=== PATIENT | female | born 1995 | race Two or more races ===

== ENCOUNTER 2022-02-16 16:53 | Emergency (ER) | payer OTHER ==
[~2022-02-16] VITALS: Ht 175.3 cm; Wt 62.1 kg
[2022-02-16] MEDS ORDERED: CIPRO500 MG PO (18:17)
== END 2022-02-16 19:05 | disposition home or self-care (01) ==
LOC: ER 16:53
DX: S01.21XA Laceration without foreign body of nose, initial encounter (principal); W22.8XXA Striking against or struck by other objects, initial encounter; Y93.11 Activity, swimming

== ENCOUNTER → 2022-02-21 | Emergency (ER) | payer OTHER ==
[~2022-02-21] VITALS: Ht 175.3 cm; Wt 62.6 kg
[~2022-02-21] MED LIST: CIPRO500 MG PO
== END | disposition home or self-care (01) ==
LOC: ER 12:56
DX: Z48.02 Encounter for removal of sutures (principal)

== ENCOUNTER 2022-02-24 12:45 | Emergency (ER) | payer OTHER ==
[~2022-02-24] VITALS: Ht 175.3 cm; Wt 62.6 kg
== END 2022-02-24 17:27 | disposition home or self-care (01) ==
LOC: ER 12:45
DX: Z48.02 Encounter for removal of sutures (principal)